=== PATIENT | male | born 1970 | race Caucasian/White ===

== ENCOUNTER 2020-09-20 07:11 | Outpatient (REF) | payer OTHER, SELFPAY ==
[2020-09-20 08:29] LABS: MANUAL DIFF FLAG NO
[2020-09-20 08:33] LABS: Basophils Absolute Auto 0.1 X10*3/uL (0.0-0.2); Basophils Percent Auto 1.3 % (0-2); Eosinophils Absolute Auto 0.1 X10*3/uL (0.0-0.4); Eosinophils Percent Auto 2.4 % (0-4); Hematocrit 44.7 % (42-52); Hemoglobin 15.8 g/dl (14.0-18.0); Imm Gran Abs Auto 0.02 X10*3/uL (0.00-0.03); Imm Gran Pct Auto 0.4 % (0.0-0.4); Lymphocytes Absolute Auto 1.8 X10*3/uL (1.2-4.9); Lymphocytes Percent Auto 33.3 % (20-40); Mean Corpuscular HGB Conc 35.3 g/dl (31.0-36.0); Mean Corpuscular Hemoglobin 31.9 pg (27.0-33.0); Mean Corpuscular Volume 90.1 fL (80-98); Mean Platelet Volume 10.1 fL (9.4-12.4); Monocytes Absolute Auto 0.3 X10*3/uL (0.1-1.2); Monocytes Percent Auto 5.6 % (2-11); Neutrophils Absolute Auto 3.1 X10*3/uL (2.0-8.3); Platelet Count 239 X10*3/uL (160-400); Red Blood Count 4.96 X10*6/uL (4.60-5.80); Red Cell Distribution Width 11.9 % (11.0-16.0); White Blood Count 5.5 X10*3/uL (4.8-10.8)
[2020-09-20 08:56] LABS: Alanine Aminotransferase 27 U/L (0-40); Albumin Level 4.4 g/dL (3.5-5.0); Alkaline Phosphatase 77 U/L (39-117); Anion Gap 13 (12-20); Aspartate Amino Transferase 22 U/L (5-37); Bilirubin Total 0.3 mg/dL (0.0-1.0); Blood Urea Nitrogen 14 mg/dL (9-16); Calcium 8.8 mg/dL (8.4-10.2); Carbon Dioxide 27 mmol/L (22-29); Chloride 104 mmol/L (96-108); Cholesterol 220 mg/dL; Estimated Glomerular Filt Rate > 60; Glucose Fasting 103 mg/dL (60-99); HDL Cholesterol 57 mg/dL; LDL Cholesterol Calculated 147 mg/dl; Potassium 4.7 mmol/l (3.3-5.1); Sodium 139 mmol/L (135-145); Total Protein 6.7 g/dL (6.5-8.0); Triglycerides 84 mg/dL
[2020-09-20 09:19] LABS: Prostate Specific Antigen 0.26 ng/mL (<0.05-4.0)
== END 2020-09-20 07:12 | disposition home or self-care (01) ==
LOC: HO.LAB 07:11
PROVIDERS: Visit Provider Internal Medicine
DX: Z00.00 Encounter for general adult medical examination without abnormal findings (principal); E78.00 Pure hypercholesterolemia, unspecified; Z12.5 Encounter for screening for malignant neoplasm of prostate
CPT/HCPCS: 36415; 80053; 80061; 84153; 85025

== ENCOUNTER → 2020-09-22 15:15 | Outpatient (BNVA) | payer OTHER, SELFPAY | PROVIDERS: PCP Internal Medicine; Visit Provider Surgery ==

== ENCOUNTER 2020-09-29 06:11 | Day surgery (SDC) | payer OTHER, SELFPAY ==
--- NOTE | 2020-09-28 10:21 | P.CONAN_ITS ---
Documented by User: Ariadne Solo 09/28/20 10:22 HPI - Anesthesia Eval Consult details Narrative: 49yo M for Left Hernia Repair Inguinal with mesh [facility] Past Medical History Medical History Left inguinal hernia Obstructive sleep apnea Surgical History Surgical History History of carpal tunnel surgery Social History Social History Alcohol intake: current Smoking Status: Never smoker Use of substances other than those prescribed or required for medical reasons: No Advance Directives: No Advance Directives Information Provided: No Recently lost weight without trying: No Meds Allergies Allergy/AdvReac Type Severity Reaction Status Date / Time No Known Allergies Allergy Verified 09/22/20 15:34 Exam Exam Date and Time: September 28, 2020 1021 Pertinent Lab Results Pertinent Lab Results: Laboratory Tests 09/20/20 09/20/20 07:29 07:29 WBC 5.5 Hgb 15.8 Hct 44.7 Plt Count 239 Sodium 139 Potassium 4.7 Chloride 104 Carbon Dioxide 27 BUN 14 Creatinine 1.07 Assessment and Plan Assessment Anesthesia Assessment: Chart Reviewed Documented by User: Simba Grissom MD 09/29/20 08:57 [facility] Past Medical History Medical History Left inguinal hernia Obstructive sleep apnea Surgical History Surgical History History of carpal tunnel surgery Social History Social History Alcohol intake: current Smoking Status: Never smoker Use of substances other than those prescribed or required for medical reasons: No Advance Directives: No Advance Directives Information Provided: No Recently lost weight without trying: No Meds Allergies Allergy/AdvReac Type Severity Reaction Status Date / Time No Known Allergies Allergy Verified 09/22/20 15:34 Assessment and Plan Assessment Anesthesia Assessment: Anesthesia Plan Discussed and Chart Reviewed Final Anesthetic Review NPO: Yes ASA Class: II Final Preanesthetic Review: No Changes in Pt Med Stat, Meds/Allgs Chart Reviewed, Consent Obtained/Reviewed and Anes Risks/Benef Reviewed Patient Risk: Intermediate Procedure Risk: Low Anesthetic Plan Anesthetic Plan: GA and Regional Block Disposition: Standard PACU
[2020-09-28 11:42] VITALS: BMI 32.2
[2020-09-29] VITALS (19 sets, daily range): BP systolic 86–132; BP diastolic 43–90; PULSE 71–88; RESP 16–20; TEMP 36.2–36.9; O2SAT 95–99; BMI 32.4
[2020-09-29] MEDS: ceFAZolin Sodium/Dextrose,Iso 2 GM/50 ML PIGGYBACK IV (06:38)
[2020-09-29] MEDS: Lactated Ringers 1,000 ML 100 ML IVCONT (06:46)
--- NOTE | 2020-09-29 07:00 | PC.NURSE ---
PATIENT COMPLAINING OF LEFT TESTISCLE PAIN NEAR THE LEFT INGUINAL HERNIA. DENIES ANY RECENT HEAVING LIFTING OR SHOVELING. AWAITING TO BE SEEN BY MD SUNG TO LET HIM KNOW.
--- NOTE | 2020-09-29 07:30 | MHC.SHP ---
Pre-Procedural Eval Section B Chief Complaint: inguinal hernia Allergies: Allergies Allergy/AdvReac Type Severity Reaction Status Date / Time No Known Allergies Allergy Verified 09/22/20 15:34 Plan I have reviewed the history and physical and performed a pertinent physical examination on my patient. No changes have occurred unless specified.
--- NOTE | 2020-09-29 08:30 | PM.OP ---
Brief Operative Note Date of Service: 09/29/20 Pre-op diagnosis: LIH Post-op diagnosis: same Procedure: repair of LIH w/ mesh Implants: mesh Surgeon: Prashant Jimenez MD Anesthesia: GLMA Estimated blood loss (mL): 5 Pathology: other (sac) Condition: stable Disposition: PACU
[2020-09-29] MEDS: oxyCODONE HCl Immed Release 5 MG TABLET PO (09:01)
[2020-09-29] MEDS: fentaNYL citrate/PF 100 MCG/2 ML VIAL 25 MCG IVPUSH ×4 (09:01→09:32)
[2020-09-29] MEDS: Acetaminophen 325 MG TABLET 650 MG PO (09:02)
[2020-09-29] MEDS: Ketorolac Tromethamine 30 MG/ML VIAL IVPUSH (09:14)
[2020-09-29] MEDS: HYDROmorphone HCl 0.5 MG/0.5 ML SYRINGE 0.25 MG IVPUSH (09:37)
--- NOTE | 2020-09-29 10:00 | OP_ITS ---
SURGEON: Prashant Jimenez MD INDICATIONS: The patient is a 49-year-old male, who was referred to me in the office because of left inguinal hernia. He describes occasiona seeing a mass in the left groin, which appeared to be more protuberant with exertion. He had been having pain on the right groin.. I explained to him the technique of repair of left inguinal hernia with mesh. He is aware of the risks including, but not limited to bleeding, infections, bowel injury, pain postop, as well as the benefits, alternatives, and had given consent. PREOPERATIVE DIAGNOSIS: Left inguinal hernia. POSTOPERATIVE DIAGNOSIS: Left inguinal hernia, indirect. PROCEDURE PERFORMED: Repair of left inguinal hernia with mesh. ESTIMATED BLOOD LOSS: COMPLICATIONS: ANESTHESIA: ASSISTANTS: Starr Salvador PA-C. SPECIMENS: DESCRIPTION OF PROCEDURE: He was brought to the operating room, placed supine on the table under general anesthesia via laryngeal mask airway. The left groin was prepped and draped in usual sterile fashion. A surgical time-out was done. The patient received cefazolin 2 g IV preoperatively. I infiltrated the planned line of incision using lidocaine 1%. I made a short incision along an imaginary line from the anterior superior iliac spine to the pubic ramus using blade #15. This was carried down to full-thickness skin and subcutaneous fat until I was able to visualize the external oblique aponeurosis. I bluntly dissected the external oblique aponeurosis using a gauze to expose the external ring. The external ring was defined. I made an incision on the external oblique aponeurosis adjacent to the ring using blade #15, extended inferomedially with an open-tip pair of scissors to connect with the external ring. The inguinal canal was therefore entered at this point. Hemostats were applied on the edges of the divided external oblique aponeurosis. I bluntly dissected the underside of the aponeurosis to create a pocket for the mesh. I then proceeded to do blunt dissection of the spermatic cord and its contents using an index finger until I was able to pass a [place] drain around this. This Dian drain was used for traction. I examined the cord and I was able to visualize the vas deferens and accompanying vessels. There was note of large amount of fat adjacent to the cord. We dissected this off the cord until I was able to separate this and examination of this fat tissue revealed a sac. I proceeded to bluntly dissect the sac off the rest of the cord contents until this was dissected all the way down to the internal ring. I actually resected the sac by applying a clamp at the base of the sac and using scissors to transect this.. I applied suture ligature with Dexon 2-0 stitch on the stump to close this. This was reduced into the internal ring. I used a medium-sized plug to reinforce the internal ring. The plug was secured with Prolene 2-0 suture to shelving edge of the inguinal ligament laterally and the internal oblique superiorly as well as medially using its inner leaves. I reinforced the floor of the canal with keyhole mesh. The tails of the mesh were passed around the cord at the level of the internal ring. The mesh was secured laterally to the shelving edge of the inguinal ligament with Prolene 2-0 sutures into the internal oblique medially and superiorly, and to the inferomedial aspect using the pubic ramus. I copiously irrigated. We observed for hemostasis. Once hemostasis was ensured, proceeded to remove the Dian drain. I closed the external oblique aponeurosis in a running Dexon 2-0 stitch to re-create the external ring. The subcutaneous layer was reapposed with Dexon 2-0 interrupted sutures. Skin closure was achieved with Dexon 4-0 subcuticular running stitch. We made sure that the ilioinguinal nerve was not caught between the sutures. The dressings were applied. The patient tolerated the procedure well. There were no complications noted. Initial and final counts of sponges and instruments were correct. Estimated blood loss was about 5 mL. The ilioinguinal nerve block was to be done by the anesthesiologist prior to transfer to recovery room. MD GISELL Loza/MONET / [id number] MATTHEW
== END 2020-09-29 10:48 | disposition home or self-care (01) ==
PROVIDERS: PCP Internal Medicine; Visit Provider Surgery
PROC: (CPT 49505; principal; 2020-09-29 07:30)
DX: K40.90 Unilateral inguinal hernia, without obstruction or gangrene, not specified as recurrent (principal); G47.33 Obstructive sleep apnea (adult) (pediatric)
CPT/HCPCS: 49505; 88302; J0690; J1100; J1170; J1885; J2250; J2370; J2405; J3010

== ENCOUNTER → 2020-10-11 12:54 | Outpatient (BNVA) | payer OTHER, SELFPAY | PROVIDERS: PCP Internal Medicine; Visit Provider Surgery ==

== ENCOUNTER 2021-05-28 08:09 | Outpatient (REF) | payer OTHER, SELFPAY ==
[2021-05-28 09:23] LABS: Alanine Aminotransferase 21 U/L (0-40); Albumin Level 4.5 g/dL (3.5-5.0); Alkaline Phosphatase 72 U/L (39-117); Anion Gap 11 (12-20); Aspartate Amino Transferase 20 U/L (5-37); Bilirubin Total 0.8 mg/dL (0.0-1.0); Blood Urea Nitrogen 14 mg/dL (9-16); Calcium 9.7 mg/dL (8.4-10.2); Carbon Dioxide 30 mmol/L (22-29); Chloride 104 mmol/L (96-108); Cholesterol 240 mg/dL; Estimated Glomerular Filt Rate > 60; Glucose Fasting 90 mg/dL (60-99); HDL Cholesterol 53 mg/dL; LDL Cholesterol Calculated 170 mg/dl; Potassium 4.7 mmol/L (3.3-5.1); Sodium 140 mmol/L (135-145); Triglycerides 85 mg/dL
== END 2021-05-28 08:10 | disposition home or self-care (01) ==
LOC: HO.LAB 08:09
PROVIDERS: PCP Internal Medicine; Visit Provider Internal Medicine
DX: E78.00 Pure hypercholesterolemia, unspecified (principal); I10 Essential (primary) hypertension
CPT/HCPCS: 36415; 80053; 80061; 84443

== ENCOUNTER → 2021-06-08 13:32 | Outpatient (BNVA) | payer OTHER, SELFPAY | PROVIDERS: PCP Internal Medicine; Visit Provider Surgery ==

== ENCOUNTER 2021-06-08 13:53 | Emergency (ER) | payer OTHER, SELFPAY ==
--- NOTE | ~2021-06-08 | US_ITS ---
EXAMINATION: US SCROTUM CLINICAL INFORMATION: Bilateral testicular pain. COMPARISON: None TECHNIQUE: A sonogram of the scrotum was performed assessing thornton-scale appearance and color Doppler flow. Spectral Doppler analysis of the arterial and venous flow were performed in the testes bilaterally. FINDINGS: RIGHT: Right testicle measures 4.4 x 2 x 2.9 cm, volume 13.5 mL. No focal testicular parenchymal lesions are visualized. Spectral Doppler analysis of the arterial and venous flow is normal in the right testis. Right epididymal head is normal in size. There is a small right epididymal head cyst measuring 2 x 1 x 2 mm. There is a small right hydrocele. There is no right varicocele. Right epididymal Doppler flow is normal. LEFT: Left testicle measures 4 x 1.8 x 2.8 cm, volume 10 mL. There are several small left testicular calcifications, 5 or 6. No other focal testicular parenchymal lesions are visualized. There is a left appendix testis. Spectral Doppler analysis of the arterial and venous flow is normal in the left testis. Left epididymal head is normal in size. No left hydrocele or varicocele is seen. Left epididymal Doppler flow is normal. US/US scrotum doppler IMPRESSION: Small right hydrocele. Small right epididymal head cyst. Several small calcifications in the left testicle.
--- NOTE | ~2021-06-08 | US_ITS ---
EXAMINATION: US SCROTUM CLINICAL INFORMATION: Bilateral testicular pain. COMPARISON: None TECHNIQUE: A sonogram of the scrotum was performed assessing thornton-scale appearance and color Doppler flow. Spectral Doppler analysis of the arterial and venous flow were performed in the testes bilaterally. FINDINGS: RIGHT: Right testicle measures 4.4 x 2 x 2.9 cm, volume 13.5 mL. No focal testicular parenchymal lesions are visualized. Spectral Doppler analysis of the arterial and venous flow is normal in the right testis. Right epididymal head is normal in size. There is a small right epididymal head cyst measuring 2 x 1 x 2 mm. There is a small right hydrocele. There is no right varicocele. Right epididymal Doppler flow is normal. LEFT: Left testicle measures 4 x 1.8 x 2.8 cm, volume 10 mL. There are several small left testicular calcifications, 5 or 6. No other focal testicular parenchymal lesions are visualized. There is a left appendix testis. Spectral Doppler analysis of the arterial and venous flow is normal in the left testis. Left epididymal head is normal in size. No left hydrocele or varicocele is seen. Left epididymal Doppler flow is normal. US/US scrotum IMPRESSION: Small right hydrocele. Small right epididymal head cyst. Several small calcifications in the left testicle.
[2021-06-08 14:03] VITALS: BP 168/105; PULSE 78; RESP 8; TEMP 36.4; O2SAT 96; BMI 30.1
--- NOTE | 2021-06-08 14:08 | ED.MALEGU ---
HPI - Male Genitourinary General Chief complaint: Urogenital-Male Stated complaint: testicle pain Time Seen by Provider: 06/08/21 13:59 Source: patient Mode of arrival: ambulatory Limitations: no limitations History of Present Illness HPI Narrative: Testicular pain started 9 days ago, saw Dr. Jimenez and he was sent to the ED. patient had nausea, no vomiting. No testicular swelling, no redness. MD Complaint: testicle pain Onset (ago): week(s) Duration: constant Location: right testicle and left testicle Exacerbating factors: movement Related Data Home Medications Medication Instructions Recorded Confirmed lisinopril 5 mg tablet 5 mg PO DAILY 06/08/21 Previous Rx's Medication Instructions Recorded ibuprofen 600 mg tablet 600 mg PO Q6H PRN #30 tab 09/29/20 oxycodone-acetaminophen 5 mg-325 1 - 2 tab PO Q4-6H PRN #30 tab 09/29/20 mg tablet (Percocet) naproxen 500 mg tablet (Naprosyn) 500 mg PO BID #20 tab 06/08/21 Allergies Allergy/AdvReac Type Severity Reaction Status Date / Time No Known Allergies Allergy Verified 10/11/20 13:00 Review of Systems Constitutional: Constitutional: Reports no additional constitutional complaints Eyes: Eyes: Reports no additional eye complaints ENT: Denies dizziness Cardiovascular: Cardiovascular: Reports no additional cardiovascular complaints Respiratory: Respiratory: Reports as per HPI Gastrointestinal: Gastrointestinal: Reports no additional gastrointestinal complaints Musculoskeletal: Musculoskeletal: Reports no additional musculoskeletal complaints Integumentary/Breasts: Skin/Breast: Denies rash Neurologic: Reports system reviewed and no additional complaints, except as documented, Denies dizziness and Denies Sensory deficit (Neuro) Psychiatric: Psychiatric: Denies anxiety PMFSH Past Medical History Medical History Left inguinal hernia Obstructive sleep apnea Pain in both testicles Surgical History History of carpal tunnel surgery History of left inguinal hernia repair Social History Social History Alcohol intake: current Advance Directives: No Advance Directives Information Provided: No Physical Exam Vital Signs: Vital Signs: Last Vital Signs Temp 97.6 F 06/08/21 14:03 Pulse 78 06/08/21 14:03 Resp 8 L 06/08/21 14:03 BP 168/105 H 06/08/21 14:03 Pulse Ox 96 06/08/21 14:03 Body Mass Index 30.1 Const: Other: Patient seeming uncomfortable General: healthy appearing Nutritional Appearance: average body habitus Orientation/consciousness: oriented to person and patient oriented x3 Limitations: no limitations HENMT: Head: Yes normal to inspection Ears: external ears normal General nose exam: Normal external nose present Mouth: Normal oral and palatal mucosa present and oropharynx normal Throat: Yes posterior oropharynx normal Eyes: General: appearance normal, both eyes and all related structures Neck: Other: supple Neck: Yes normal visual inspection Chest: Chest palpation & inspection: normal inspection of the chest Resp: Auscultation: clear to auscultation bilaterally Cardio: Jugular venous distension: no JVD Rate: regular rate Rhythm: regular rhythm Heart sounds: S1 normal heart sound present and S2 normal heart sound present GI: Inspection: Yes normal to inspection Palpation (GI): Soft to palpation, nontender and No hepatosplenomegaly present Auscultation: normal bowel sounds : Other: normal penis, no discharge, testicles with normal lie, nontender, no swelling or erythema, positive cremasteric both sides, no epidydimal or testicular tenderness General: Yes no CVA tenderness Back/Spine/Pelvis: Back: no CVA tenderness Skin: General skin exam: no rashes or lesions noted Neuro: General: oriented to person and patient oriented x3 Cranial nerves: Yes CN's II-XII intact bilaterally Motor exam (neuro): 5/5 motor strength present throughout Sensory Exam: No Sensory deficit (Neuro) Extrem: General: Yes normal to inspection Psych: Appearance: grossly normal Course Reevaluation(s) Reevaluation #1: no obvious reason for testicular pain, US negative labs and urine are normal. Will start NSAIDs and have patient follow up with pmd Time: 15:41 [facility] - Male Genitourinary Lab Data Result diagrams: 06/08/21 14:06 06/08/21 14:06 Labs: Lab Results 06/08/21 06/08/21 06/08/21 Range/Units 14:06 14:06 14:06 WBC 7.3 (4.8-10.8) X10*3/uL RBC 4.88 (4.60-5.80) X10*6/uL Hgb 15.6 (14.0-18.0) g/dl Hct 43.5 (42-52) % MCV 89.1 (80-98) fL MCH 32.0 (27.0-33.0) pg MCHC 35.9 (31.0-36.0) g/dl RDW 12.0 (11.0-16.0) % Plt Count 233 (160-400) X10*3/uL MPV 9.4 (9.4-12.4) fL Immature Gran % (Auto) 0.1 (0.0-0.4) % Neut % (Auto) 71.5 (45-73) % Lymph % (Auto) 21.9 (20-40) % [place] % (Auto) 5.5 (2-11) % Eos % (Auto) 0.3 (0-4) % Baso % (Auto) 0.7 (0-2) % Lymph # (Auto) 1.6 (1.2-4.9) X10*3/uL [place] # (Auto) 0.4 (0.1-1.2) X10*3/uL Eos # (Auto) 0.0 (0.0-0.4) X10*3/uL Baso # (Auto) 0.1 (0.0-0.2) X10*3/uL Abs Immat Gran (auto) 0.01 (0.00-0.03) X10*3/uL Absolute Neuts (auto) 5.2 (2.0-8.3) X10*3/uL Absolute Nucleated RBC 0.000 (0.0-0.012) X10*3/uL Nucleated RBC % (auto) 0.0 (0.0-0.2) /100WBC Sodium 137 (135-145) mmol/L Potassium 4.0 (3.3-5.1) mmol/L Chloride 103 (96-108) mmol/L Carbon Dioxide 25 (22-29) mmol/L Anion Gap 13 (12-20) BUN 14 (9-16) mg/dL Creatinine 1.17 (0.5-1.4) mg/dL Estim Creat Clear Calc 86.5 Estimated GFR > 60 Random Glucose 100 (60-115) mg/dL Calcium 9.7 (8.4-10.2) mg/dL Total Bilirubin 0.6 (0.0-1.0) mg/dL Direct Bilirubin 0.2 (0.0-0.5) mg/dL AST 23 (5-37) U/L ALT 26 (0-40) U/L Alkaline Phosphatase 73 (39-117) U/L Total Protein 7.3 (6.5-8.0) g/dL Albumin 4.8 (3.5-5.0) g/dL Lipase 35 (8-78) U/L Urine Color YELLOW Urine Appearance CLEAR Urine pH 6.0 (5.0-8.0) Ur Specific [place] <= 1.005 (1.005-1.025) Urine Protein NEG (NEG-TRACE) MG/DL Urine Glucose (UA) NEG (NEG) MG/DL Urine Ketones NEG (NEG) MG/DL Urine Blood NEG (NEG) Urine Nitrite NEG (NEG) Ur Leukocyte Esterase NEG (NEG) Discharge Plan Discharge Clinical Impression: Pain in both testicles Patient Disposition: Home, Self-Care Instructions: Testicle Pain (ED) Prescriptions: New naproxen [Naprosyn] 500 mg tablet 500 mg PO BID Qty: 20 RF: 0 No Action oxycodone-acetaminophen [Percocet] 5-325 mg tablet 1 - 2 tab PO Q4-6H PRN (Reason: pain) Qty: 30 RF: 0 ibuprofen 600 mg tablet 600 mg PO Q6H PRN (Reason: pain) Qty: 30 RF: 0 lisinopril 5 mg tablet 5 mg PO DAILY RF: 0 Referrals: Gonzalo Hebert MD, DO [Primary Care Provider] - 1 week
[2021-06-08 14:13] LABS: MANUAL DIFF FLAG NO
[2021-06-08 14:15] LABS: Appearance Urine CLEAR; Basophils Absolute Auto 0.1 X10*3/uL (0.0-0.2); Basophils Percent Auto 0.7 % (0-2); Color Urine YELLOW; Eosinophils Percent Auto 0.3 % (0-4); Glucose Urine UA NEG (NEG); Hematocrit 43.5 % (42-52); Hemoglobin 15.6 g/dl (14.0-18.0); Imm Gran Abs Auto 0.01 X10*3/uL (0.00-0.03); Imm Gran Pct Auto 0.1 % (0.0-0.4); Leukocyte Esterase Urine NEG (NEG); Lymphocytes Absolute Auto 1.6 X10*3/uL (1.2-4.9); Lymphocytes Percent Auto 21.9 % (20-40); Mean Corpuscular HGB Conc 35.9 g/dl (31.0-36.0); Mean Corpuscular Volume 89.1 fL (80-98); Mean Platelet Volume 9.4 fL (9.4-12.4); Monocytes Absolute Auto 0.4 X10*3/uL (0.1-1.2); Monocytes Percent Auto 5.5 % (2-11); Neutrophils Absolute Auto 5.2 X10*3/uL (2.0-8.3); Neutrophils Percent Auto 71.5 % (45-73); Nitrite Urine NEG (NEG); Platelet Count 233 X10*3/uL (160-400); Red Blood Count 4.88 X10*6/uL (4.60-5.80); Specific Gravity - Urine <= 1.005 (1.005-1.025); Urine Blood NEG (NEG); Urine Ketones NEG (NEG); Urine Protein NEG (NEG-TRACE); White Blood Count 7.3 X10*3/uL (4.8-10.8)
[2021-06-08 14:34] LABS: Alanine Aminotransferase 26 U/L (0-40); Albumin Level 4.8 g/dL (3.5-5.0); Alkaline Phosphatase 73 U/L (39-117); Anion Gap 13 (12-20); Aspartate Amino Transferase 23 U/L (5-37); Bilirubin Direct 0.2 mg/dL (0.0-0.5); Bilirubin Total 0.6 mg/dL (0.0-1.0); Blood Urea Nitrogen 14 mg/dL (9-16); Calcium 9.7 mg/dL (8.4-10.2); Carbon Dioxide 25 mmol/L (22-29); Chloride 103 mmol/L (96-108); Creatinine Clr Calc Pharmacy 86.5; Estimated Glomerular Filt Rate > 60; Glucose Random 100 mg/dL (60-115); Lipase 35 U/L (8-78); Sodium 137 mmol/L (135-145); Total Protein 7.3 g/dL (6.5-8.0)
[2021-06-08] MEDS: Ketorolac Tromethamine 60 MG/2 ML VIAL IM (15:09)
== END 2021-06-08 16:15 | disposition home or self-care (01) ==
PROVIDERS: Emergency Medicine; Emergency Provider Emergency Medicine; PCP Internal Medicine
DX: N50.812 Left testicular pain (principal); N50.811 Right testicular pain
CPT/HCPCS: 36415; 76870; 80048; 80076; 81003; 83690; 85025; 93975; 96372; 99284; J1885

== ENCOUNTER 2021-06-16 06:56 | Outpatient (REF) | payer OTHER, SELFPAY ==
--- NOTE | ~2021-06-16 | CT_ITS ---
EXAMINATION: CT ABDOMEN AND PELVIS WITHOUT CONTRAST CLINICAL INFORMATION: Right inguinal pain. Left inguinal pain. History hernia repair. COMPARISON: Scrotal ultrasound 06/08/2021. TECHNIQUE: Multidetector volumetric imaging was performed from the superior aspect of the liver through the pubic symphysis. Sagittal and coronal reformatted images were obtained on the technologist's workstation. No oral or intravenous contrast. This CT examination was performed using dose optimization techniques as appropriate, variously including the following: *Automated exposure control *Adjustment of mA and/or kV according to patient size (this includes techniques or standardized protocols for targeted exams where dose is matched to indication/reason for exam; i.e. extremities or head) *Use of iterative reconstruction technique DLP: 1106 mGy-cm FINDINGS: LUNG BASES: The visualized lung bases are unremarkable. LIVER, GALLBLADDER, AND BILIARY TREE: Liver is normal in size and smooth in contour. There is a probable tiny subcentimeter cyst inferior right lobe, low attenuation and too small to characterize with density measurements. The remainder the liver is homogeneous. There is no intrahepatic ductal dilatation. The gallbladder is unremarkable with no evidence of radiopaque gallstones, gallbladder wall thickening, or obvious pericholecystic inflammatory changes. PANCREAS: Unremarkable. SPLEEN: Unremarkable. ADRENAL GLANDS: Unremarkable. KIDNEYS AND URETERS: The kidneys are normal in size and attenuation and show no hydronephrosis. There is no hydroureter of perinephric stranding. No right urinary tract calculi. Left kidney has a 1 cm nonobstructing interpolar calculus, 872 HU attenuation and 10 cm from the left flank. BLADDER: Unremarkable. GASTROINTESTINAL TRACT: There is no bowel obstruction or inflammatory changes in the bowel or mesentery. The appendix is normal. There is no ascites or fluid collection. ABDOMINAL WALL: Left inguinal region has mild stranding in the subcutaneous soft tissue, likely related to recent hernia repair. The hernia sac is approximately 2 cm in diameter with internal fatty composition and mild peripheral fluid likely small postoperative seroma. No gas bubbles. There is no definite recurrent abdominal wall defect. There is small fat-containing umbilical hernia under 2 cm. No right inguinal hernia. LYMPH NODES: No lymphadenopathy. VASCULAR: Unremarkable. PELVIC VISCERA: Unremarkable. OSSEOUS STRUCTURES: Bilateral L5 spondylolysis with borderline spondylolisthesis and degenerative disc changes lumbosacral junction. Mild degenerative changes lower thoracic spine. No acute bony abnormality. CT/CT abdomen pelvis wo con IMPRESSION: 1. Postsurgical changes left inguinal region. Probable small peripheral seroma remaining former inguinal hernia sac. No gas bubbles. 2. No bowel obstruction or inflammatory changes. Normal appendix. 3. Nonobstructing left renal calculus 1 cm. No perinephric stranding or hydronephrosis. 4. Probable tiny hepatic cyst under 1 cm. 5. Bilateral L5 spondylolysis with borderline spondylolisthesis and degenerative disc changes lumbosacral junction.
== END 2021-06-16 06:57 | disposition home or self-care (01) ==
LOC: HO.CT 06:56
PROVIDERS: PCP Internal Medicine; Visit Provider Internal Medicine
DX: R10.31 Right lower quadrant pain (principal)
CPT/HCPCS: 74176

== ENCOUNTER 2022-02-25 07:15 | Outpatient (REF) | payer OTHER, SELFPAY ==
[2022-02-25 08:52] LABS: Alanine Aminotransferase 30 U/L (0-40); Albumin Level 4.5 g/dL (3.5-5.0); Alkaline Phosphatase 71 U/L (39-117); Anion Gap 12 (12-20); Aspartate Amino Transferase 22 U/L (5-37); Blood Urea Nitrogen 13 mg/dL (9-16); Calcium 9.3 mg/dL (8.4-10.2); Carbon Dioxide 28 mmol/L (22-29); Chloride 104 mmol/L (96-108); Cholesterol 205 mg/dL; Estimated Glomerular Filt Rate > 60; Glucose Fasting 96 mg/dL (60-99); HDL Cholesterol 48 mg/dL; LDL Cholesterol Calculated 138 mg/dl; Potassium 4.7 mmol/L (3.3-5.1); Sodium 139 mmol/L (135-145); Triglycerides 97 mg/dL
[2022-02-25 08:53] LABS: Prostate Specific Antigen 0.19 ng/mL (<0.05-4.0)
== END 2022-02-25 07:16 | disposition home or self-care (01) ==
LOC: HO.LAB 07:15
PROVIDERS: Visit Provider Internal Medicine
DX: Z00.00 Encounter for general adult medical examination without abnormal findings (principal); I10 Essential (primary) hypertension; E78.00 Pure hypercholesterolemia, unspecified; Z12.5 Encounter for screening for malignant neoplasm of prostate
CPT/HCPCS: 36415; 80053; 80061; 84153

== ENCOUNTER → 2022-10-02 11:06 | Outpatient (BNVA) | payer SELFPAY | PROVIDERS: PCP Internal Medicine; Visit Provider Internal Medicine | DX: Z02.79 Encounter for issue of other medical certificate (principal) ==

== ENCOUNTER 2024-08-09 07:06 | Outpatient (REF) | payer OTHER, SELFPAY ==
[2024-08-09 09:16] LABS: B Type Natriuretic Peptide 16 pg/mL (<100)
[2024-08-09 11:12] LABS: MANUAL DIFF FLAG NO
[2024-08-09 11:35] LABS: Basophils Absolute Auto 0.1 X10*3/uL (0.0-0.2); Eosinophils Absolute Auto 0.1 X10*3/uL (0.0-0.4); Eosinophils Percent Auto 1.5 % (0-4); Hematocrit 44.8 % (42.0-52.0); Hemoglobin 15.9 g/dl (14.0-18.0); Imm Gran Abs Auto 0.02 X10*3/uL (0.00-0.03); Imm Gran Pct Auto 0.4 % (0.0-0.4); Lymphocytes Absolute Auto 1.5 X10*3/uL (1.2-4.9); Lymphocytes Percent Auto 29.4 % (20-40); Mean Corpuscular HGB Conc 35.5 g/dl (31.0-36.0); Mean Corpuscular Hemoglobin 31.7 pg (27.0-33.0); Mean Corpuscular Volume 89.2 fL (80.0-98.0); Mean Platelet Volume 9.9 fL (9.4-12.4); Monocytes Absolute Auto 0.3 X10*3/uL (0.1-1.2); Neutrophils Absolute Auto 3.2 x10*3/uL (2.0-8.3); Neutrophils Percent Auto 61.7 % (45-73); Platelet Count 232 X10*3/uL (160-400); Red Blood Count 5.02 X10*6/uL (4.60-5.80); Red Cell Distribution Width 12.1 % (11.0-16.0); White Blood Count 5.2 X10*3/uL (4.8-10.8)
[2024-08-09 11:43] LABS: Alanine Aminotransferase 24 U/L (0-40); Albumin Level 4.3 g/dL (3.5-5.0); Alkaline Phosphatase 67 U/L (39-117); Anion Gap 12 (12-20); Aspartate Amino Transferase 27 U/L (5-37); Bilirubin Total 0.7 mg/dL (0.0-1.0); Blood Urea Nitrogen 15 mg/dL (9-16); Calcium 9.3 mg/dL (8.4-10.2); Carbon Dioxide 25 mmol/L (22-29); Chloride 106 mmol/L (96-108); Cholesterol 239 mg/dL (<200); Estimated Glomerular Filt Rate > 60; Glucose Fasting 96 mg/dL (60-99); HDL Cholesterol 52 mg/dL (>40); LDL Cholesterol Calculated 169 mg/dL (<100); Potassium 4.3 mmol/L (3.3-5.1); Sodium 139 mmol/L (135-145); Total Protein 6.9 g/dL (6.5-8.0); Triglycerides 92 mg/dL (<150)
[2024-08-09 11:49] LABS: Thyroid Stimulating Hormone 1.31 uIU/mL (0.32-4.0); Vitamin D 25-OH Total 73.4 ng/mL (>30)
[2024-08-09 11:53] LABS: Prostate Specific Antigen 0.25 ng/mL (<0.05-4.0)
--- OUTSIDE RECORDS SUMMARY | 2024-08-13 11:35 | XMS_ITS ---
Author Organization Gonzalo Hebert DO, [facility] Address [address] [place] [address] [phone] Care Team Providers Care Shingle Weaver Name Role Phone Gonzalo Hebert Primary Care Provider REASON FOR VISIT Message SOCIAL HISTORY Sex Assigned At : Social History Observation Description Sex Assigned At Male Encounters Encounter Location Date Provider Diagnosis Gonzalo Hebert DO, [facility] [address] [place] [address] [phone] 07/16/2024 Gonzalo Hebert Essential hypertensi on I10 ; Hypercholesterolemia E78.00 and Prostate cancer screening Z12.5 ASSESSMENTS Encounter Date Diagnosis Assessment Notes Treatment Notes Treatment Clinical Notes 07/16/2024 Essential hypertensi on (ICD-10 - I10) 07/16/2024 Hypercholesterolemia (ICD-10 - E78.00) 07/16/2024 Prostate cancer scre ening (ICD-10 - Z12.5) PLAN OF TREATMENT Next Appt Details Provider Name:Gonzalo herbert, 08/15/2024 02:00:00 PM, [address] [place] [address], [phone],
--- OUTSIDE RECORDS SUMMARY | 2024-08-13 11:35 | XMS_ITS ---
Author Organization Gonzalo Hebert DO, [facility] Address [address] [place] [address] [phone] Care Team Providers Care Play Leader Name Role Phone Gonzalo Hebert Primary Care Provider SOCIAL HISTORY Sex Assigned At : Social History Observation Description Sex Assigned At Male Encounters Encounter Location Date Provider Diagnosis Gonzalo Hebert DO, FACP [address] [place] [address] [phone] 08/08/2024 Gonzalo Hebert PLAN OF TREATMENT Next Appt Details Provider Name:Gonzalo herbert, 08/15/2024 02:00:00 PM, [address] [place] [address], [phone],
--- OUTSIDE RECORDS SUMMARY | 2024-08-13 11:35 | XMS_ITS | Patient Health Record ---
Author Organization Gonzalo Hebert DO, [facility] Address [address] [facility] [place], [place] [id number] Care Team Providers Care Baggage Clerk Name Role Phone Gonzalo Hebert Primary Care Provider ALLERGIES No Known Allergies RESULTS Component Value Reference Range Notes Complete Blood Count Auto Di ff Reviewed date:08/09/2024 12:31:59 PM Interpretation:Normal Performing Lab:[facility], [address] [place] [phone] Notes/Report: White Blood Count 5.2 4.8-10.8 X10*3/uL Red Blood Count 5.02 4.60-5.80 X10*6/uL Hemoglobin 15.9 14.0-18.0 g/dl Hematocrit 44.8 42.0-52.0 % Mean Corpuscular Volume 89.2 80.0-98.0 fL Mean Corpuscular Hemoglobin 31.7 27.0-33.0 pg Mean Corpuscular HGB Conc 35.5 31.0-36.0 g/dl Red Cell Distribution Width 12.1 11.0-16.0 % Platelet Count 232 160-400 X10*3/uL Mean Platelet Volume 9.9 9.4-12.4 fL Neutrophils Percent Auto 61.7 45-73 % Imm Gran Pct Auto 0.4 0.0-0.4 % Lymphocytes Percent Auto 29.4 20-40 % Monocytes Percent Auto 6.0 2-11 % Eosinophils Percent Auto 1.5 0-4 % Basophils Percent Auto 1.0 0-2 % NRBC Pct Auto 0.0 0.0-0.2 /100WBC Neutrophils Absolute Auto 3.2 2.0-8.3 x10*3/u L Imm Gran Abs Auto 0.02 0.00-0.03 X10*3/uL Lymphocytes Absolute Auto 1.5 1.2-4.9 X10*3/u L Monocytes Absolute Auto 0.3 0.1-1.2 X10*3/uL Eosinophils Absolute Auto 0.1 0.0-0.4 X10*3/u L Basophils Absolute Auto 0.1 0.0-0.2 X10*3/uL NRBC Abs Auto 0.000 0.0-0.012 X10*3/uL Comprehensive [place]. Panel Fa st Reviewed date:08/09/2024 12:17:38 PM Interpretation:Normal Performing Lab:[facility], [address] [place] [phone] Notes/Report: Sodium 139 135-145 mmol/L Potassium 4.3 3.3-5.1 mmol/L Chloride 106 96-108 mmol/L Carbon Dioxide 25 22-29 mmol/L Anion Gap 12 12-20 Blood Urea Nitrogen 15 9-16 mg/dL Creatinine 1.03 0.5-1.4 mg/dL Estimated Glomerular Filt Rate > 60 Chronic Kidney Disease: Estimated GFR < 60 mL/min/1.73m2 Severe Kidney Disease: Estimated GFR < 15 mL/min/1.73m2 Glucose Fasting 96 60-99 mg/dL Calcium 9.3 8.4-10.2 mg/dL Bilirubin Total 0.7 0.0-1.0 mg/dL Aspartate Amino Transferase 27 5-37 U/L Alanine Aminotransferase 24 0-40 U/L Total Protein 6.9 6.5-8.0 g/dL Albumin Level 4.3 3.5-5.0 g/dL Alkaline Phosphatase 67 39-117 U/L B Type Natriuretic Peptide Reviewed date:08/09/2024 12:26:51 PM Interpretation:Normal Performing Lab:[facility], [address] [place] [phone] Notes/Report: B Type Natriuretic Peptide 16 <100 pg/mL For those patients who are being treated with Natrecor (nesiritide, recombinant BNP), BNP testing should be performed at least two hours post treatment in order to ensure that only endogenous levels of BNP are detected. Lipid Panel Reviewed date:08/09/2024 12:17:59 PM Interpretation:Abnormal Performing Lab:[facility], [address] [place] [phone] Notes/Report: Triglycerides 92 <150 mg/dL Desirable Triglyceride: less than 150 mg/dL Borderline High Triglyceride 150-199 mg/dL High Triglyceride: 200-499 mg/dL Very High Triglyceride: greater than or equal to 5OO mg/dL Cholesterol 239 <200 mg/dL Desirable Cholesterol: less than 200 mg/dL Borderline High Cholesterol: 200-239 mg/dL High Cholesterol: greater than 239 mg/dL LDL Cholesterol Calculated 169 <100 mg/dL Desirable LDL: less than 100 mg/dL Near Optimal/Above Optimal LDL: 110-129 mg/dL Borderline High LDL: 130-159 mg/dL High LDL: 160-189 mg/dL Very High LDL: greater than or equal to 190 mg/dL HDL Cholesterol 52 >40 mg/dL Desirable HDL: greater than 40 mg/dL Note: This HDL assay may give artificially low results in patients with liver disease. Prostate Specific Antigen Reviewed date:08/09/2024 12:26:09 PM Interpretation:Normal Performing Lab:[facility], [address] [place] [phone] Notes/Report: Prostate Specific Antigen 0.25 <0.05-4.0 ng/mL PSA methodology: Bose Alinity i Chemiluminescent Microparticle Immunoassay (CMIA) Vitamin D 25-OH Total Reviewed date:08/09/2024 12:24:25 PM Interpretation:Normal Performing Lab:[facility], [address] [place] [phone] Notes/Report: Vitamin D 25-OH Total 73.4 >30 ng/mL Health Based Reference Values* < 20 ng/mL Deficient 20-30 ng/mL Insufficient > 30 ng/mL Sufficient *Moe PONCE. N Engl J Med. 2007;357:266-280 Care must be taken in interpreting Vitamin D results from different laboratories and methodologies. Published data demonstrated that results from patients undergoing hemodialysis may show a negative bias when tested with various automated 25-OH vitamin D assays when compared to LC-MS/MS. When testing samples from patients whose predominant form of Vitamin D is Vitamin D2, such as patients receiving Vitamin D2 supplementation, results that are subtherapeutic should be confirmed with another method such as LC-MS/MS. Thyroid Stimulating Hormone Reviewed date:08/09/2024 12:25:07 PM Interpretation:Normal Performing Lab:[facility], [address] [facility], [place] [address] Notes/Report: Thyroid Stimulating Hormone 1.31 0.32-4.0 uIU/ mL TSH 3rd Generation ([facility]) REASON FOR REFERRAL No Information MEDICATIONS Medication SIG (Take, Route, Frequency, Duration) Notes Start Date End Date Status Diclofenac Sodium 75 MG 1 tablet as need ed Orally Twice a day 06/22/2021 Active Atorvastatin Calcium 10 MG 1 tablet Oral ly Once a day 08/05/2021 Active predniSONE 10 MG 4 tablets for 4 days , 3 for 3, 2 for 2, 1 for 1 Orally Once a day for 10 days 09/23/2022 Active Amoxicillin-Pot Clavulanate 875-125 MG 1 tablet with food Orally Twice a day for 7 days 09/13/2022 Active Azithromycin 250 MG 2 tablet on the day, then 1 tablet daily for 4 days Orally Once a day for 5 day(s) 12/27/2021 Active Lisinopril 5 MG 1 tablet Orally Once a day for 90 days Active IMMUNIZATIONS Vaccine Route Administration Date Status Comme nts Influenza Quad IM Intramuscular 05/23/2019 Administered TDaP IM Intramuscular 10/14/2019 Administered Influenza Quad IM Intramuscular 07/13/2020 Administered COVID-19 Moderna Vaccine Unknown 11/20/2020 Administere d COVID-19 Moderna Vaccine Unknown 12/18/2020 Administere d flu vaccine Unknown 06/14/2017 Administered COVID-19 Moderna Vaccine Unknown 06/30/2021 Administere d Influenza Quad Unknown 06/13/2021 Administered Influenza Quad IM Intramuscular 07/11/2022 Administered Influenza Quad IM Intramuscular 06/12/2023 Administered SOCIAL HISTORY Tobacco Use: Social History Observation Description Date Details (start date - stop date) Never Smoker NA - NA Sex Assigned At : Social History Observation Description Sex Assigned At Male Tobacco Use/Smoking Question Answer Notes Patient is a nonsmoker Additional Findings: Tobacco Non-User Cu rrent non-smoker, currently using no form of tobacco Alcohol Screen Question Answer Notes Did you have a drink contain ing alcohol in the past year? Yes How often did you have a dri nk containing alcohol in the past year? 2 to 4 times a month (2 points) How many drinks did you have on a typical day when you were drinking in the past year? 1 or 2 drinks (0 point) How often did you have 6 or more drinks on one occasion in the past year? Never (0 point) Points 2 Interpretation Negative PROBLEMS Problem Type ICD Code Onset Dates Problem Status W/U Status Risk SNOMED Code Notes Problem Essential hypertensi on (I10) Active confirmed 38279995 Problem Renal lithiasis (N20.0) Active confirmed 63589301 Problem Right-sided low back pain with right-sided sciatica, unspecified chronicity (M54.41) Active confirmed 137639113 Problem Hypercholesterolemia (E78.00) Active confirmed 75020570 Encounters Encounter Location Date Provider Diagnosis Gonzalo Hebert DO, [address] [id number] 09/05/2023 Gonzalo Hebert DO, [address] [id number] 03/19/2024 Gonzalo Hebert DO, [address] [id number] 07/16/2024 Gonzalo Hebert Essential hypertensi on I10 ; Hypercholesterolemia E78.00 and Prostate cancer screening Z12.5 Gonzalo Hebert DO, [address] [id number] 08/08/2024 Gonzalo Hebert ASSESSMENTS Encounter Date Diagnosis Assessment Notes Treatment Notes Treatment Clinical Notes 07/16/2024 Essential hypertensi on (ICD-10 - I10) 07/16/2024 Hypercholesterolemia (ICD-10 - E78.00) 07/16/2024 Prostate cancer scre ening (ICD-10 - Z12.5) PLAN OF TREATMENT Pending Test Test Name Order Date XR chest 2V 12/12/2022 Next Appt Details Provider Name:oGnzalo Morris Juan Luismaru piedad, 08/15/2024 02:00:00 PM, [address] [place] [address], [phone], Insurance Providers Payer Name Payer Address Payer Phone Subscriber Number Group Number Insured Name Patient Relationship to Insured Coverage Start Date Coverage End Date [facility] [address] [place] [phone] [id number] Zeyad De La Garza Self - patient is the insured MEDICAL (GENERAL) HISTORY Medical History History ICD Code hypercholesterolemia obstructive sleep apnea, mild, positiona l renal lithiasis Essential hypertension I10 Surgical History Surgery Date(Month/Year) carpal tunnel release B/L left inguinal herniorraphy 09/2020
--- OUTSIDE RECORDS SUMMARY | 2024-08-13 11:35 | XMS_ITS ---
Author Organization Gonzalo Hebert DO, [facility] Address [address] [place] [phone] Care Team Providers Care Documentation Manager Name Role Phone Gonzalo Hebert Primary Care Provider [phone] REASON FOR VISIT Message SOCIAL HISTORY Sex Assigned At : Social History Observation Description Sex Assigned At Male Encounters Encounter Location Date Provider Diagnosis Gonzalo Hebert DO, [address] [id number] 03/19/2024 Gonzalo Hebert PLAN OF TREATMENT Next Appt Details Provider Name:Gonzalo herbert, 08/15/2024 02:00:00 PM, [address] [place] [address], [phone],
== END 2024-08-09 07:07 | disposition home or self-care (01) ==
LOC: HO.HMGCLDS 07:06
PROVIDERS: PCP Internal Medicine; Visit Provider Internal Medicine
DX: I10 Essential (primary) hypertension (principal); E78.00 Pure hypercholesterolemia, unspecified; Z12.5 Encounter for screening for malignant neoplasm of prostate
CPT/HCPCS: 36415; 80053; 80061; 82306; 83880; 84153; 84443; 85025

== ENCOUNTER 2024-11-25 15:25 | Outpatient (AMB) | payer OTHER, SELFPAY ==
--- NOTE | 2024-11-25 15:28 | MHC.PC.OV ---
Vital Signs 11/25/24 15:31 Height 5 ft 10 in Weight 227 lb BMI 32.6 BP 128/76 Respiration 14 Pulse 82 Pulse Source Pulse Oximeter Temp 97.6 F Temp Source Temporal Artery Scan Pulse Oximetry (%) 96 Oxygen Delivery Method Room Air Intake Visit Reasons: physical Coremaker Pipe Required: No Accompanied by: Self / Same As Patient Allergies amoxicillin Allergy (Verified 11/25/24 15:29) Hives Tobacco use date assessed: 11/25/24 Dental Screening Dental Screen Date: 11/25/24 Did you have a dental visit in the last 12 months?: Yes Did you have a dental problem in the last 6 months where you did not have access to dental care?: No PFSH Medical History Pain in both testicles Left inguinal hernia Obstructive sleep apnea Surgical History History of left inguinal hernia repair History of carpal tunnel surgery Family History (Updated 11/25/24 @ 15:38 by RUBY Guerrero) Mother High blood pressure High cholesterol Father High blood pressure Heart problem Social History Housing: House Alcohol intake: current Patient Tobacco Use Status: Never used Tobacco service: No Current occupational status: employed Cognitive needs: No Hearing needs: No Vision needs: Yes (rx glasses) Questionnaire PHQ-9 Over the last 2 weeks, how often have you been bothered by any of the following problems? 1. Little interest or pleasure in doing things: not at all 2. Feeling down, depressed, or hopeless: not at all 3. Trouble falling or staying asleep, or sleeping too much: not at all 4. Feeling tired or having little energy: not at all 5. Poor appetite or overeating: not at all 6. Feeling bad about yourself - or that you are a failure or have let yourself or your family down: not at all 7. Trouble concentrating on things, such as reading the newspaper or watching television: not at all 8. Moving or speaking so slowly that other people could have noticed. Or the opposite - being so fidgety or restless that you have been moving around a lot more than usual: not at all 9. Thoughts that you would be better off or of hurting yourself in some way: not at all Total score: 0 Source: Developed by Drs. Gonzalo Grimm, Jeronimo Cordero and colleagues, with an educational faby from [employer]. Thrive Questionnaire Date Thrive assessed: 11/25/24 I am a: Patient What is your living situation today?: I have a steady place to live Within the past 12 months, did the food you bought not last and you didn't have the money to get more?: Never true Within the past 12 months, did you worry whether your food would run out before you got money to buy more?: Never true Do you have trouble paying for medicines?: No Do you have trouble getting transportation to medical appointments?: No Do you have trouble paying your heating and electricity bill?: No Do you have trouble taking care of your child, family member or friend?: No Do you have trouble with day-to-day activities such as bathing, preparing meals, shopping, managing finances, etc.?: No Are you currently unemployed and looking for a job?: No Are you interested in more education?: No Please select the resources that you would like help with: None THRIVE Score: 0 AUDIT C Alcohol Use Questionnaire (AUDIT-C) 1. How often do you have a drink containing alcohol?: Never 3. How often do you have six or more drinks on one occasion?: Never Total Score: 0 RJ-7 AMB Questionnaire RJ-7 Date RJ - 7 assessed: 11/25/24 Feeling nervous, anxious, or on edge: 0 = Not at all Not being able to stop or control worryin = Not at all Worrying too much about different things: 0 = Not at all Trouble relaxin = Not at all Being so restless that it is hard to sit still: 0 = Not at all Becoming easily annoyed or irritable: 0 = Not at all Feeling afraid as if something awful might happen: 0 = Not at all Total RJ-7 score (0-4 normal; 5-9 mild; 10-14 moderate; 15-21 severe): 0 Source: Developed by Cyn Vicente Kurt Kroenke and colleagues, with an educational faby from [employer]. Physical exam (Primary Care) Vital Signs: Last Vital Signs Temp 97.6 F 11/25/24 15:31 Pulse 82 11/25/24 15:31 Resp 14 11/25/24 15:31 BP 128/76 11/25/24 15:31 Pulse Ox 96 11/25/24 15:31 Oxygen Delivery Method Room Air 11/25/24 15:31 BMI result Body Mass Index 32.6 Tobacco/Smoking Status: Tobacco use Status Tobacco use date assessed 11/25/24 11/25/24 15:38 Patient Tobacco Use Status Never used Tobacco 11/25/24 15:38 PHQ-9: PHQ-9 Score PHQ-9: Total score 0 11/25/24 15:58 Thrive Assessment: Date of Thrive Assessment Date Thrive assessed 11/25/24 11/25/24 15:38 Coding Level of Care Code New Pt Level 3 (64154) New Pt Prev Care 40-64y(50592) Diagnoses Hyperlipidemia E78.5 Low Back Pain M54.50 Assessment & Plan Assessment & Plan (1) Hyperlipidemia: Code(s): E78.5 - Hyperlipidemia, unspecified Plan: Will call with result, continue current meds (2) Low Back Pain: Code(s): M54.50 - Low back pain, unspecified Plan: MRI ordered. Currently on no meds Plan History of Present Illness The patient is a 54-year-old male presenting for a physical examination and ongoing assessment of lumbar radiculopathy symptoms. Post-L5-S1 spinal fusion, he reports significant burning and tingling in the foot experienced when standing over 10 minutes, relieved by walking or sitting. Symptoms originated in 2020 after surgery for lumbar decompression. An MRI conducted in 2021 showed no further nerve compression, but referral to a exercise specialist was not pursued. The patient detailed negative side effects from atorvastatin leading to its discontinuation, after which rosuvastatin was initiated. Past surgical history includes an inguinal hernia repair with no subsequent complications noted. Social History - Employment: Works in building, property repairs, involving plumbing, electrical, and carpentry tasks. - Family: Has three sons and four grandchildren. - Exercise: Engages in exercises such as push-ups and pull-ups twice a week. - Driving: Commutes early for work but does not drive at night due to a morning work schedule. Review of Systems - Neurological: Reports burning, tingling sensation in the foot on standing. - Musculoskeletal: Denies incapacitating back pain. - Gastrointestinal: Denies difficulties with urination or bowel-related issues. - Cardiovascular: Reports elevated cholesterol, managing with medication. Physical Exam General: Cooperative and healthy appearing Nutritional Appearance: Well nourished Orientation/consciousness: Patient oriented x3 Limitations: No limitations Head: Normal to inspection General: Appearance normal, both eyes and all related structures Neck: Normal visual inspection Chest: Normal palpation of entire chest wall Respiratory: Normal respiratory effort Neurology: Patient oriented x3 Results Plan I will review the patient's previous spinal MRI to determine the necessity of a current assessment, given ongoing symptoms. A referral to a exercise specialist might be considered if future evaluations warrant it. Current cholesterol management with rosuvastatin appears stable, so I will continue monitoring its effect. I will assess the patient's adherence to current treatment and lifestyle recommendations, ensuring no immediate medication changes needed without further evaluations indicating otherwise. Patient was informed and verbally consented to the use of an ambient scribe for clinic note documentation during this visit. Discussion Notes In my discussion with the patient, we reviewed the symptoms and management strategies for lumbar radiculopathy since his L5-S1 surgery. I explained the limitations and continued monitoring required, emphasizing safety in activity levels. For cholesterol, we discussed the transition to rosuvastatin and its tolerable management. I highlighted the importance of routine follow-ups and potential need for additional imaging or specialist referral. The patient agreed with the current plan and acknowledged understanding of when to seek further medical advice if symptoms worsen. Patient Instructions - Continue with rosuvastatin as prescribed, monitor for any side effects. - Maintain current activity level, avoid prolonged standing if possible, and consider breaks. - Schedule a follow-up or seek medical attention if symptoms progress. - Consider referral to a exercise specialist if advised during future evaluations. - Maintain regular physical activity, as tolerated, and engage in planned exercise routines. Orders: Orders Lipid Panel 11/25/24 E78.5 - Hyperlipidemia, unspecified MR lumbar spine w con 11/25/24 M54.50 - Low back pain, unspecified
[2024-11-25 15:31] VITALS: BP 128/76; PULSE 82; RESP 14; TEMP 36.4; O2SAT 96; BMI 32.6
== END 2024-11-25 16:00 | disposition home or self-care (01) ==
LOC: HO.HMCSH 15:25
PROVIDERS: PCP Internal Medicine; Visit Provider Internal Medicine
DX: Z00.00 Encounter for general adult medical examination without abnormal findings (principal); E78.5 Hyperlipidemia, unspecified; M54.50 Low back pain, unspecified

== ENCOUNTER 2025-06-02 15:37 | Outpatient (AMB) | payer OTHER, SELFPAY ==
--- NOTE | 2025-06-02 15:41 | A.OFFPC_ITS ---
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 The patient has a history of essential hypertension, currently managed with lisinopril 5 mg, which is being increased to 10 mg due to elevated blood pressure readings of 148/86 mmHg and 143 mmHg. He monitors his blood pressure daily and is concerned about the risk of heart attack. The patient has hyperlipidemia, with a total cholesterol level of 239 mg/dL, which has been increasing over the past two years. He is currently on rosuvastatin 10 mg at bedtime and has been advised to modify his diet to manage cholesterol levels. The patient underwent lumbar fusion surgery in November 2022 due to a slipped disc between L5 and S1, which was causing severe pain. Post-surgery, he experiences persistent neuropathic pain, particularly when standing for prolonged periods, leading to numbness and discomfort in the right testicle. He has had multiple MRIs, and the most recent one showed no nerve compression, but symptoms persist. The patient is undergoing prostate cancer screening and has had normal results in the past. He reports feeling fatigued for years and has opted for Lyme disease testing as a precautionary measure. 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 - Family: to [place], with childre n. [facility] Medical History (Updated 06/02/25 @ 17:37 by Susan Martin PA-C) Essential hypertension Preventative health care Prostate cancer screening Hyperlipidemia Annual physical exam Paresthesia of right leg Pain in both testicles Left inguinal hernia Obstructive sleep apnea Surgical History (Updated 06/02/25 @ 17:36 by Susan Martin PA-C) History of lumbar fusion History of colonoscopy (~11/03/19) History of left inguinal hernia repair History of carpal tunnel surgery Family History Mother High blood pressure High cholesterol Father High blood pressure Heart problem Social History Housing: House Alcohol intake: current Patient Tobacco Use Status: Never used Tobacco service: No Current occupational status: employed Cognitive needs: No Hearing needs: No Vision needs: Yes (rx glasses) Questionnaire PHQ-9 Over the last 2 weeks, how often have you been bothered by any of the following problems? 1. Little interest or pleasure in doing things: not at all 2. Feeling down, depressed, or hopeless: not at all 3. Trouble falling or staying asleep, or sleeping too much: not at all 4. Feeling tired or having little energy: not at all 5. Poor appetite or overeating: not at all 6. Feeling bad about yourself - or that you are a failure or have let yourself or your family down: not at all 7. Trouble concentrating on things, such as reading the newspaper or watching television: not at all 8. Moving or speaking so slowly that other people could have noticed. Or the opposite - being so fidgety or restless that you have been moving around a lot more than usual: not at all 9. Thoughts that you would be better off or of hurting yourself in some way: not at all Total score: 0 Depression Screening Interpretation: Negative Depression Screening Done: Yes 86345 - PHQ-9 Billing: Yes Source: Developed by Drs. Gonzalo Grimm, Cyn Paredes, Jeronimo Fierro and colleagues, with an educational faby from [employer]. Thrive Questionnaire Date Thrive assessed: 11/25/24 I am a: Patient What is your living situation today?: I have a steady place to live Within the past 12 months, did the food you bought not last and you didn't have the money to get more?: Never true Within the past 12 months, did you worry whether your food would run out before you got money to buy more?: Never true Do you have trouble paying for medicines?: No Do you have trouble getting transportation to medical appointments?: No Do you have trouble paying your heating and electricity bill?: No Do you have trouble taking care of your child, family member or friend?: No Do you have trouble with day-to-day activities such as bathing, preparing meals, shopping, managing finances, etc.?: No Are you currently unemployed and looking for a job?: No Are you interested in more education?: No Please select the resources that you would like help with: None THRIVE Score: 0 AUDIT C Alcohol Use Questionnaire (AUDIT-C) 1. How often do you have a drink containing alcohol?: Never 3. How often do you have six or more drinks on one occasion?: Never Total Score: 0 Score Reviewed/Action Taken: No RJ-7 AMB Questionnaire RJ-7 Date RJ - 7 assessed: 11/25/24 Feeling nervous, anxious, or on edge: 0 = Not at all Not being able to stop or control worryin = Not at all Worrying too much about different things: 0 = Not at all Trouble relaxin = Not at all Being so restless that it is hard to sit still: 0 = Not at all Becoming easily annoyed or irritable: 0 = Not at all Feeling afraid as if something awful might happen: 0 = Not at all Total RJ-7 score (0-4 normal; 5-9 mild; 10-14 moderate; 15-21 severe): 0 Source: Developed by Drs. Gonzalo Grimm, Cyn Paredes, Jeronimo Fierro and colleagues, with an educational faby from [employer]. RJ-7 Assessment Billing RJ-7 Assessment Tool: RJ-7 Assessment 36012 Review of Systems Const Details: - Cardiovascular: Reports shortness of breath on exertion. Denies chest pain or palpitations. - Neurological: Reports numbness and discomfort in the right testicle when standing for prolonged periods. Denies back pain. All systems reviewed & are unremarkable except as noted in HPI and below Physical exam (Primary Care) Vital Signs: Last Vital Signs Temp 97.9 F 06/02/25 15:42 Pulse 80 06/02/25 15:42 Resp 16 06/02/25 15:42 BP 143/62 H 06/02/25 15:42 Pulse Ox 96 06/02/25 15:42 Oxygen Delivery Method Room Air 06/02/25 15:42 Care Plan Goal for BP management: <140/90 will increase lisinopril from 5 mg to 10 mg patient to return in 1 month BMI result Body Mass Index 32.4 BMI Assessment/Plan discussion: High BMI High, discussed plan: lifestyle, weight reduction, dietary, physical activity, alcohol moderation and other Tobacco/Smoking Status: Tobacco use Status Tobacco use date assessed 06/02/25 06/02/25 15:43 Patient Tobacco Use Status Never used Tobacco 06/02/25 15:43 PHQ-9: PHQ-9 Score PHQ-9: Total score 0 06/02/25 16:01 Depression Screening Interpretation: Negative Thrive Assessment: Date of Thrive Assessment Date Thrive assessed 11/25/24 06/02/25 15:43 Const Other: Appearance: Alert. Oriented X3. No acute distress. Head: Normal external exam. Normocephalic. Atraumatic. Eyes: Pupils are equal, round, and reactive to light. Extraocular movements intact. Conjunctiva and sclera normal. Eyelids normal. Ears: External auditory canal normal. Tympanic membranes normal. Throat: Pharynx normal. Uvula midline. Moist mucous membranes. Neck: Normal inspection. Neck supple. Full range of motion. No adenopathy. Thyroid Normal. No meningeal signs. No neck mass noted. Cardiovascular: Normal heart rate and rhythm. Heart sound normal. Very slight murmur noted. [place] an extra beat. Blood pressure was 148/86, and another reading was 143. Plan to increase lisinopril to 10 mg. Respiratory: No respiratory distress. Painless inspiration. Breath sounds nor mal. No wheezes/rales/rhonchi noted. Chest nontender. No accessory muscle usage noted or decreased air movement noted. Abdomen: Soft and nontender. Bowel sounds normal in all 4 quadrants. No distention noted. No organomegaly noted. No visible injury noted. Back: No costovertebral angle tenderness. Full range of motion noted. History of back surgery in November 2022 with screws and a vicente placed. Reports numbness and pain when standing for prolonged periods. Skin: Skin warm and dry. Normal skin color. Normal skin turgor. No rashes/lesions/lacerations noted. Extremities: No lower extremity edema. Extremities exhibit normal range of motion. Extremities nontender. Neuro: Oriented X 3. No motor deficit. No sensory deficit. Reflexes normal. Reports numbness and pain in the right testicle when standing for prolonged periods, but no incontinence or numbness in the testicle. Results Reviewed Results Reviewed: - Labs: Previous CBC normal, fasting glucose 96 mg/dL, total cholesterol 239 mg/dL, LDL cholesterol 169 mg/dL. - Imaging: MRI post-lumbar fusion showed no nerve compression. Coding Level of Care Code Est Pt Level 4 (14687) Est Pt Prev Care 40-64y(29301) Diagnoses Annual physical exam Z00.00 Hyperlipidemia E78.5 History of lumbar fusion Z98.1 Prostate cancer screening Z12.5 Preventative health care Z00.00 Essential hypertension I10 Additional Codes PHQ-9 - 85684 - PHQ-9 Billing: Yes ([id number]) RJ-7 Assessment Billing - RJ-7 Assessment Tool: RJ-7 Assessment 38955 ([id number]) Time Spent (min) 50 Assessment & Plan Assessment & Plan (1) Annual physical exam: Code(s): Z00.00 - Encounter for general adult medical examination without abnormal findings Category: Medical (2) Hyperlipidemia: Code(s): E78.5 - Hyperlipidemia, unspecified Category: Medical Plan: The patient is currently on rosuvastatin 10 mg at bedtime for hyperlipidemia, with a total cholesterol level of 239 mg/dL. He has been advised to modify his diet to manage cholesterol levels and will have his cholesterol rechecked after dietary changes. (3) History of lumbar fusion: Code(s): Z98.1 - Arthrodesis status Category: Surgical Plan: The patient continues to experience neuropathic pain post-lumbar fusion surgery, particularly when standing for prolonged periods. An MRI has been reordered to assess the current status, and he is advised to follow up with imaging results. (4) Prostate cancer screening: Code(s): Z12.5 - Encounter for screening for malignant neoplasm of prostate Category: Medical Plan: The patient is undergoing routine prostate cancer screening, with previous results being normal. He will continue with regular screenings as part of preventative care. (5) Preventative health care: Code(s): Z00.00 - Encounter for general adult medical examination without abnormal findings Category: Medical Plan: The patient reports chronic fatigue and has opted for Lyme disease testing as a precautionary measure. The test has been ordered, and results will be reviewed upon completion. (6) Essential hypertension: Code(s): I10 - Essential (primary) hypertension Category: Medical Plan: The patient's lisinopril dosage is being increased from 5 mg to 10 mg due to elevated blood pressure readings of 148/86 mmHg and 143 mmHg. He is advised to monitor his blood pressure at home and return for a follow-up in 30 days to assess the effectiveness of the increased dosage. Plan Plan Patient was informed and verbally consented to the use of an ambient scribe for clinic note documentation during this visit. 1. Essential Hypertension The patient's lisinopril dosage is being increased from 5 mg to 10 mg due to elevated blood pressure readings of 148/86 mmHg and 143 mmHg. He is advised to monitor his blood pressure at home and return for a follow-up in 30 days to assess the effectiveness of the increased dosage. 2. Hyperlipidemia The patient is currently on rosuvastatin 10 mg at bedtime for hyperlipidemia, with a total cholesterol level of 239 mg/dL. He has been advised to modify his diet to manage cholesterol levels and will have his cholesterol rechecked after dietary changes. 3. Post-Surgical Status: Lumbar Fusion With Persistent Neuropathic Pain The patient continues to experience neuropathic pain post-lumbar fusion surgery, particularly when standing for prolonged periods. An MRI has been reordered to assess the current status, and he is advised to follow up with imaging results. 4. Prostate Cancer Screening The patient is undergoing routine prostate cancer screening, with previous results being normal. He will continue with regular screenings as part of preventative care. 5. Lyme Disease Testing The patient reports chronic fatigue and has opted for Lyme disease testing as a precautionary measure. The test has been ordered, and results will be reviewed upon completion. During the visit, we discussed the patient's elevated blood pressure and the decision to increase lisinopril to 10 mg. We also reviewed his cholesterol le vels and the importance of dietary modifications. The patient was informed about the need for an MRI to evaluate persistent neuropathic pain post-lumbar fusion. We discussed routine prostate cancer screening and the decision to test for Lyme disease due to chronic fatigue. Follow-up plans include monitoring blood pressure at home and returning in 30 days for reassessment. Orders: Orders C Reactive Protein Today Z00.00 - Encounter for general adult medical examination without abnormal findings Hemoglobin A1c Today Z00.00 - Encounter for general adult medical examination without abnormal findings Liver Panel Today Z00.00 - Encounter for general adult medical examination without abnormal findings Magnesium Today Z.00 - Encounter for general adult medical examination without abnormal findings Vitamin D 25-OH Total Today Z00.00 - Encounter for general adult medical examination without abnormal findings TSH reflex Free T4 Today Z.00 - Encounter for general adult medical examination without abnormal findings Lyme IgG/IgM w/reflex to WB Today Z00.00 - Encounter for general adult medical examination without abnormal findings MR lumbar spine w con 11/25/24 M54.50 - Low back pain, unspecified, R20.2 - Paresthesia of skin Testosterone, Free/Total Today Z00.00 - Encounter for general adult medical examination without abnormal findings Complete Blood Count Auto Diff Today Z00.00 - Encounter for general adult medical examination without abnormal findings Comprehensive [place]. Panel Fast Today Z00.00 - Encounter for general adult medical examination without abnormal findings Lipid Panel Today Z00.00 - Encounter for general adult medical examination without abnormal findings Vitamin B12 and Folate Today Z00.00 - Encounter for general adult medical exa mination without abnormal findings UA CC w/rflx Micro + Cult Today Z00.00 - Encounter for general adult medical examination without abnormal findings PSA,Total (Free>4and<10) Today Z00.00 - Encounter for general adult medical examination without abnormal findings DHEA Sulfate Today Z00.00 - Encounter for general adult medical examination without abnormal findings Dihydrotestosterone Today Z00.00 - Encounter for general adult medical examination without abnormal findings Medications: Changed From lisinopril 5 mg PO DAILY 90 tabs 1RF To lisinopril 10 mg PO DAILY 90 tabs 3RF Patient Instructions: - Monitor blood pressure at home and record readings. - Follow a heart-healthy diet to manage cholesterol levels. - Schedule and complete fasting blood work and MRI as ordered. - Return for follow-up in 30 days to reassess blood pressure and review test results.
[2025-06-02 15:42] VITALS: BP 143/62; PULSE 80; RESP 16; TEMP 36.6; O2SAT 96; BMI 32.4
== END 2025-06-02 16:29 | disposition home or self-care (01) ==
LOC: HO.HMCSH 15:37
PROVIDERS: PCP Internal Medicine; Visit Provider Physician Assistant Medical
DX: Z00.00 Encounter for general adult medical examination without abnormal findings (principal); I10 Essential (primary) hypertension; E78.5 Hyperlipidemia, unspecified; Z98.1 Arthrodesis status; Z12.5 Encounter for screening for malignant neoplasm of prostate

== ENCOUNTER → 2025-06-02 15:37 | Outpatient (BNVA) | payer OTHER, SELFPAY | PROVIDERS: PCP Internal Medicine; Visit Provider Physician Assistant Medical | DX: Z00.00 Encounter for general adult medical examination without abnormal findings (principal); E78.5 Hyperlipidemia, unspecified; I10 Essential (primary) hypertension; Z98.1 Arthrodesis status; Z79.899 Other long term (current) drug therapy | CPT/HCPCS: 96127 ==

== ENCOUNTER 2025-06-06 06:30 | Outpatient (REF) | payer OTHER, SELFPAY ==
[2025-06-06 11:16] LABS: MANUAL DIFF FLAG NO
[2025-06-06 11:30] LABS: Appearance Urine Clear; Glucose Urine UA Negative (Negative); PH 6.0 (5.0-9.0); Specific Gravity - Urine 1.020 (1.005-1.025)
[2025-06-06 11:37] LABS: Hematocrit 45.5 % (42.0-52.0); Hemoglobin 15.8 g/dl (14.0-18.0); Imm Gran Abs Auto 0.01 X10*3/uL (0.00-0.03); Imm Gran Pct Auto 0.2 % (0.0-0.4); Lymphocytes Absolute Auto 1.8 X10*3/uL (1.2-4.9); Mean Corpuscular HGB Conc 34.7 g/dl (31.0-36.0); Mean Corpuscular Hemoglobin 31.5 pg (27.0-33.0); Mean Corpuscular Volume 90.8 fL (80.0-98.0); NRBC Abs Auto 0.000 X10*3/uL (0.0-0.012); NRBC Pct Auto 0.0 /100WBC (0.0-0.2); Platelet Count 219 X10*3/uL (160-400); Red Blood Count 5.01 X10*6/uL (4.60-5.80); White Blood Count 4.9 X10*3/uL (4.8-10.8)
[2025-06-06 12:08] LABS: Alanine Aminotransferase 32 U/L (0-40); Albumin Level 4.6 g/dL (3.5-5.0); Alkaline Phosphatase 69 U/L (39-117); Anion Gap 11 (12-20); Aspartate Amino Transferase 35 U/L (5-37); Blood Urea Nitrogen 14 mg/dL (9-16); Calcium 9.2 mg/dL (8.4-10.2); Carbon Dioxide 27 mmol/L (22-29); Chloride 105 mmol/L (96-108); Cholesterol 175 mg/dL (<200); Estimated Glomerular Filt Rate > 60; HDL Cholesterol 49 mg/dL (>40); Magnesium 2.3 mg/dL (1.6-2.6); Potassium 4.3 mmol/L (3.3-5.1); Sodium 139 mmol/L (135-145); Total Protein 7.0 g/dL (6.5-8.0); Triglycerides 74 mg/dL (<150)
[2025-06-06 12:13] LABS: PSA,Total (Free>4and<10) 0.24 ng/mL (0.00-4.00)
[2025-06-06 12:30] LABS: Folate 13.0 ng/mL (> or = 4.0); Vitamin B12 494 pg/mL (200-900)
[2025-06-09 22:29] LABS: Lyme Abs Screen <0.90 index
[2025-06-14 07:08] LABS: Testosterone, Free 84.2 pg/mL (35.0-155.0)
== END 2025-06-06 06:31 | disposition home or self-care (01) ==
LOC: HO.HMGCLDS 06:30
PROVIDERS: PCP Physician Assistant Medical; Visit Provider Physician Assistant Medical
DX: Z00.00 Encounter for general adult medical examination without abnormal findings (principal); Z12.5 Encounter for screening for malignant neoplasm of prostate; Z13.6 Encounter for screening for cardiovascular disorders; Z13.1 Encounter for screening for diabetes mellitus; Z13.29 Encounter for screening for other suspected endocrine disorder
CPT/HCPCS: 36415; 80053; 80061; 80076; 81003; 82248; 82306; 82607; 82627; 82642; 82746; 83036; 83735; 84153; 84402; 84403; 84443; 85025; 86140; 86617; 86618

== ENCOUNTER 2025-06-19 09:21 | Outpatient (REF) | payer OTHER, SELFPAY ==
--- NOTE | ~2025-06-19 | XR_ITS ---
EXAMINATION: XR LUMBOSACRAL SPINE CLINICAL INFORMATION: Z98.1 - Arthrodesis status COMPARISON: None. Correlation made with CT abdomen and pelvis 06/16/2021. TECHNIQUE: 5 views of the lumbar spine, inclusive of bilateral oblique views, were obtained. FINDINGS: There is a very subtle right convex scoliosis, possibly positional. Mild straightening of the normal lordosis. There has been fusion of L5-S1 with transpedicular screws, posterior connecting rods, and disc prosthesis present. Hardware is intact, well seated, without evidence of periprosthetic lucency or fracture. There are no subluxations. No fracture, compression deformity, or suspicious bone lesion. Mild disc degeneration present at L4-5. Disc spaces otherwise maintained. Normal facet alignment and appearance. No pars defects. No soft tissue abnormalities. XR/XR lumbar spine 4V min IMPRESSION: 1. No acute bony or soft tissue abnormalities. 2. L5-S1 fusion without complication evident. 3. Mild disc degeneration L4-5. Electronically signed by: Angel La MD 06/19/2025 09:56 AM EDT
== END 2025-06-19 09:22 | disposition home or self-care (01) ==
LOC: HO.HMGCX 09:21
PROVIDERS: PCP Physician Assistant Medical; Visit Provider Physician Assistant Medical
DX: M54.50 Low back pain, unspecified (principal); M79.606 Pain in leg, unspecified; R20.2 Paresthesia of skin; Z98.1 Arthrodesis status
CPT/HCPCS: 72110

== ENCOUNTER → 2025-06-19 09:24 | Outpatient (BNV) | payer OTHER, SELFPAY | PROVIDERS: PCP Physician Assistant Medical; Visit Provider Radiology Diagnostic Radiology | DX: M51.369 Other intervertebral disc degeneration, lumbar region without mention of lumbar back pain or lower extremity pain (principal); Z98.1 Arthrodesis status | CPT/HCPCS: 72110 ==